=== PATIENT | female | born 1990 | race Caucasian/White ===

== ENCOUNTER 2018-11-11 02:17 | Emergency (ER) | payer OTHER ==
[2018-11-11] MEDS ORDERED: traMADol 50 MG Tab PO ONE (02:18)
[2018-11-11] MEDS ORDERED: cefTRIAXone 1 GM Vial IM ONE (04:36)
[2018-11-11] MEDS ORDERED: Diphtheria,Pertussis(Acell),Tetanus Vaccine 0.5 ML SDV IM ONE (04:37)
--- NOTE | 2018-11-11 05:32 | EDM.PDOC ---
ED HPI GENERAL MEDICAL PROBLEM - General Chief Complaint: Upper Extremity Injury/Pain Stated Complaint: LT INDEX FINGER SWOLLEN Time Seen by Provider: 11/11/18 02:45 Source of Information: Reports: Patient History Limitations: Reports: No Limitations - History of Present Illness INITIAL COMMENTS - FREE TEXT/NARRATIVE: patient presents with concern for pain in left index finger. Started Saturday when she smashed it putting a spare tire back into the wheel well. has been doing ice over weekend, but yesterday noted it was red, then the pain has continued to worsen. slight amount of pain further up in her finger now. No fever, chills, sweats, otherwise well, does not have diabetes, no immunocompromising meds or conditions. recently diagnosed with a clotting disorder and instructed to start Xarelto, however she hasn't done so yet. Nonsmoker Treatments DISEASE AND INSECT CONTROL BOSS: Reports: Acetaminophen, NSAIDS Left Finger-Index Pain Score (Numeric/FACES): 8 - Related Data Allergies Allergy/AdvReac Type Severity Reaction Status Date / Time No Known Allergies Allergy Verified 11/11/18 02:41 Home Meds: Home Meds .Xarelto 11/11/18 [History] Cephalexin [Keflex] 500 mg PO QID #40 capsule 11/11/18 [Rx] Sertraline [Zoloft] 100 mg PO DAILY 11/11/18 [History] busPIRone HCl [Buspirone HCl] 7.5 mg PO DAILY 11/11/18 [History] metFORMIN [Glucophage] 1,000 mg PO BEDTIME 11/11/18 [History] metFORMIN [Glucophage] 500 mg PO DAILY 11/11/18 [History] Past Medical History 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 ED EXAM, GENERAL - Physical Exam Exam: See Below Free Text/Narrative:: general: Alert, in no acute distress. Left index finger is swollen with erythema noted on the right side of the nail and also in the pad with no involvement of the DIP joint. There is no tense or fluctuant area in the pad suggesting a felon. She is able to move her finger through full range of motion without difficulty, and there is no tenderness noted with palpation of any of the flexor or extensor tendons with the exception of a very small amount of tenderness on the lateral side just distal to the MCP joint, this is not over the flexor tendon but seems to be somewhat lateral to it. A slight skin abrasion is noted at this point and I wonder if she may have scraped her finger here as well. Neurovascularly she is completely intact. There are no lymph nodes noted in the axilla or trochlear area Course - Vital Signs Text/Narrative:: isolated finger cellulitis, I don't see any evidence of abscess or felon which would require drainage at this point, although potentially early developing one might be present. Discussed getting baseline labs, rocephin IM followed by oral antibiotics, close followup. Will also update tetanus today. xray ordered given mechanism of injury and heavy object involved. Last Recorded V/S: Last Vital Signs Temp 36.7 C 11/11/18 02:17 Pulse 75 11/11/18 02:17 Resp 18 11/11/18 02:17 BP 136/96 H 11/11/18 02:17 Pulse Ox 100 11/11/18 02:17 - Orders/Labs/Meds Orders: Active Orders 24 hr Category Date Time Status Vaccines to be Administered [RC] PER UNIT ROUTINE Care 11/11/18 04:37 Active Hand Comp Min 3V Lt [CR] Stat Exams 11/11/18 04:36 Taken Labs: Laboratory Tests 11/11/18 11/11/18 Range/Units 05:08 05:08 WBC 10.6 (4.5-12.0) X10-3/uL RBC 4.69 (3.23-5.20) x10(6)uL Hgb 13.3 (11.5-15.5) g/dL Hct 39.1 (30.0-51.3) % MCV 83.2 (80-96) fL MCH 28.3 (27.7-33.6) pg MCHC 34.0 (32.2-35.4) g/dL RDW 14.1 (11.5-15.5) % Plt Count 321 (125-369) X10(3)uL MPV 8.2 (7.4-10.4) fL Neut % (Auto) 71.6 (46-82) % Lymph % (Auto) 19.6 (13-37) % Glenn % (Auto) 5.4 (4-12) % Eos % (Auto) 3 (1.0-5.0) % Baso % (Auto) 1 (0-2) % Neut # (Auto) 7.5 (1.6-8.3) # Lymph # (Auto) 2.1 (0.6-5.0) # Glenn # (Auto) 0.6 (0.0-1.3) # Eos # (Auto) 0.3 (0.0-0.8) # Baso # (Auto) 0.1 (0.0-0.2) # C-Reactive Protein 0.2 L (0.5-0.9) mg/dL Meds: Medications Discontinued Medications Generic Name Dose Route Start Last Admin Trade Name Davidq PRN Reason Stop Dose Admin Ceftriaxone Sodium 1 gm 11/11/18 04:36 11/11/18 04:49 Rocephin IM 11/11/18 04:37 1 gm ONETIME ONE Administration Diphtheria/Tetanus/Acell Pertussis 0.5 ml 11/11/18 04:37 11/11/18 05:09 Adacel IM 11/11/18 04:38 0.5 ml .ONCE ONE Administration - Re-Assessments/Exams Free Text/Narrative Re-Assessment/Exam: 11/11/18 labs normal, no fracture or foreign body seen on xray given significant pain, small script of take-home tramadol given, I would not repeat this as she should be improving. discussed at length signs or symptoms which would prompt need for immediate followup recommend recheck in walk-in clinic in about 24 hours to ensure improvement, sooner if worsening she is in agreement with this plan and all questions answered Departure - Departure Time of Disposition: 05:26 Disposition: Home, Self-Care 01 Condition: Good Clinical Impression: Cellulitis of finger - Discharge Information *PRESCRIPTION DRUG MONITORING PROGRAM REVIEWED*: Yes *COPY OF PRESCRIPTION DRUG MONITORING REPORT IN PATIENT MISTY: No Prescriptions: Cephalexin [Keflex] 500 mg PO QID #40 capsule Instructions: Ceftriaxone injection, Tramadol tablets, VIS, Diphtheria, Tetanus , and Pertussis (DTaP) - CDC (08/15/2006), Cellulitis, Adult, [id number] Referrals: Felisha Francisco, HEM INSPECTOR [Primary Care Provider] - Forms: ED Department Discharge Additional Instructions: recheck this afternoon if worsening, difficulty moving finger, red streaking swelling specifically in joint, or fever recommend recheck in walk-in clinic on Saturday morning to ensure improving small course tramadol given for pain to help sleep note provided for work tetanus updated today rocephin 1gm given here, start oral antibiotics tonight do not start xarelto until infection is resolved - My Orders Last 24 Hours: My Active Orders 11/11/18 04:36 Hand Comp Min 3V Lt [CR] Stat 11/11/18 04:37 Vaccines to be Administered [RC] PER UNIT ROUTINE - Assessment/Plan Last 24 Hours: My Active Orders 11/11/18 04:36 Hand Comp Min 3V Lt [CR] Stat 11/11/18 04:37 Vaccines to be Administered [RC] PER UNIT ROUTINE
--- NOTE | 2018-11-11 10:51 | CR ---
INDICATION: Swollen red second digit, smashed putting spare tire back in trunk. LEFT HAND: Three views of the left hand were obtained 11/11/18 - no comparisons. There is what appears to be some calcific density along the medial aspect of the distal shaft and ungual tuft of the index finger. This could actually represent a chip fracture fragment off the ungual tuft. There is overlying soft tissue swelling also noted. No other bone or joint abnormality was identified. IMPRESSION: Probable tiny chip fracture fragment off the ungual tuft of the index finger along the medial aspect. MTDD
== END 2018-11-11 05:56 | disposition home or self-care (01) ==
LOC: FB.ED 02:17
DX: L03.012 Cellulitis of left finger (principal); Z79.899 Other long term (current) drug therapy; Z23 Encounter for immunization
CPT/HCPCS: 36415; 73130; 85025; 86140; 90471; 90715; 96372; 99283; A9270; J0696